=== PATIENT | male | born 1980 | race Two or more races ===

== ENCOUNTER 2017-06-21 13:29 | Inpatient (IN) | payer MEDICAID ==
[~2017-06-21] VITALS: Ht 154.9 cm; Wt 65.8 kg
--- NOTE | 2017-06-21 13:45 | Emergency Room Report ---
History of Present Illness General Chief Complaint: Dizziness Source: Patient (Joseph Corley M.D.) Present Illness HPI 36-year-old male, history of diabetes, presenting with dizziness upon standing. Patient states that she checked her sugar this morning it was over 300, got up and felt very lightheaded, did not hit the floor. Patient states that he has had intermittent lightheadedness all day. Admits to drinking alcohol however last drink was yesterday afternoon. Patient states that he takes his metformin as directed, as well as insulin at night time last dose was last night. Patient denies any headache, blurry vision, neck pain, nausea vomiting diarrhea, dysuria, motor or sensory weakness (Joseph Corley M.D.) Allergies: Coded Allergies: No Known Allergies (Unverified , 04/16/13) Patient History Past Medical History: see triage record Past Surgical History: none Pertinent Family History: none Reviewed Nursing Documentation: PMH: Agreed, PSxH: Agreed (Joseph Corley M.D. ) Nursing Documentation-PMH Past Medical History: No History, Except For Hx Diabetes: Yes (Joseph Corley M.D.) Review of Systems All Other Systems: negative except mentioned in HPI (Joseph Corley M.D.) Physical Exam Vital Signs Date Time Temp Pulse Resp B/P (MAP) Pulse Ox O2 Delivery O2 Flow Rate FiO2 06/21/17 13:22 98.1 98 20 129/62 99 Room Air Sp02 EP Interpretation: reviewed, normal General Appearance: alert, GCS 15, non-toxic, other - Anxious appearing young male, conversing appropriately at bedside, not in acute respiratory distress Head: normocephalic, atraumatic Eyes: bilateral eye normal inspection, bilateral eye PERRL, bilateral eye EOMI ENT: normal ENT inspection, normal pharynx, normal voice, moist mucus membranes Neck: normal inspection, full range of motion, supple, no meningismus Respiratory: normal inspection, lungs clear, normal breath sounds, no respiratory distress, no retraction, no wheezing, speaking full sentences, chest symmetrical Cardiovascular #1: normal inspection, no edema, normal capillary refill, tachycardia Cardiovascular #2: 2+ radial (R), 2+ radial (L) Gastrointestinal: normal inspection, non tender, soft, non-distended, no guarding Genitourinary: no CVA tenderness Musculoskeletal: normal inspection, back normal, normal range of motion, non- tender Neurologic: normal inspection, alert, oriented x3, responsive, manager er III-XII nml as tested, motor strength/tone normal, sensory intact, normal gait, speech normal Psychiatric: normal inspection, judgement/insight normal, memory normal Skin: normal inspection, normal color, no rash, warm/dry, well hydrated, normal turgor (Joseph Corley M.D.) Medical Decision Making Diagnostic Impression: Primary Impression: Dizziness Additional Impressions: Dehydration Hyponatremia Hypokalemia Hypochloremia ER Course 36-year-old male with diabetes presenting with one day of lightheadedness DDX: Electrolyte disturbance, hypoglycemia, dehydration, UTI, alcohol intox Patient not exhibiting any neurological deficits and not having any neurological symptoms to think intracranial pathology at this time Plan: Obtain labs, ua, ucx, ucg, CXR, EKG ER course: Patient has remained stable during ED stay. Denies pain Given IVF as EMS states BP was low, BP has been normal in ED Please note that this Emergency Department Report was dictated using [employer] expeditor technology software, occasionally this can lead to erroneous entry secondary to interpretation by the dictation equipment Signed out to 36-year-old male admits to drinking yesterday diabetic presenting with one day of lightheadedness -Pending labs -At this time pt appears stable, will anticipate discharge after IVF however correlate with labs (Joseph Corley M.D.) ER Course Hospital Course 36-year-old male presents to ED complaining of dizziness, orthostatic vitals as per EMS Clinical course Patient initially seen and evaluated by Dr. Corley. Please see her note for full history and physical Patient started on IV fluids, EKG chest x-ray labs reviewed- noted leukocytosis, hb/hct stable, Na 124, K 1.9, Cl 70. glucose in the 200s. AG normal. lactate ok. Magnesium ok EKG - NSR, prolonged QT, no ischemic changes intperreted by me Chest x-ray- no acute process Given fluids, given potassium IV and by mouth. Given antibiotics. Case discussed with Dr. Harris and he agreed to accept the patient to his service for further care and support I. I feel this is a highly complex case requiring extensive working including EKG/Rhythm strip, Xray/CT/US, Blood/urine lab work, repeat exams while in ED, and administration of strong opiates/narcotics for pain control, admission to hospital or close patient follow up. Diagnosis - dizziness, dehydration, hyponatremia, hypokalemia, hypochloremia admitted to telemetry in serious condition Labs Test 06/21/17 14:00 06/21/17 14:30 06/21/17 14:56 06/21/17 16:40 White Blood Count 12.8 K/UL (4.8-10.8) Red Blood Count 4.07 M/UL (4.70-6.10) Hemoglobin 13.5 G/DL (14.2-18.0) Hematocrit 35.6 % (42.0-52.0) Mean Corpuscular Volume 88 FL (80-99) Mean Corpuscular Hemoglobin 33.2 PG (27.0-31.0) Mean Corpuscular Hemoglobin Concent 37.9 G/DL (32.0-36.0) Red Cell Distribution Width 9.5 % (11.6-14.8) Platelet Count 168 K/UL (150-450) Mean Platelet Volume 9.4 FL (6.5-10.1) Neutrophils (%) (Auto) 83.0 % (45.0-75.0) Lymphocytes (%) (Auto) 8.3 % (20.0-45.0) Monocytes (%) (Auto) 8.3 % (1.0-10.0) Eosinophils (%) (Auto) 0.0 % (0.0-3.0) Basophils (%) (Auto) 0.4 % (0.0-2.0) Sodium Level 121 mEQ/L (135-145) 124 mEQ/L (135-145) Potassium Level 2.1 mEQ/L (3.4-4.9) 1.9 mEQ/L (3.4-4.9) Chloride Level 63 mEQ/L (98-107) 70 mEQ/L (98-107) Carbon Dioxide Level 47 mEQ/L (20-30) 45 mEQ/L (20-30) Anion Gap 11 (5-15) 9 (5-15) Blood Urea Nitrogen 49 mg/dL (7-23) 46 mg/dL (7-23) Creatinine 1.1 mg/dL (0.7-1.2) 1.0 mg/dL (0.7-1.2) Estimat Glomerular Filtration Rate > 60 mL/min (>60) > 60 mL/min (>60) Glucose Level 290 mg/dL (74-106) 235 mg/dL (74-106) Calcium Level 9.0 mg/dL (8.6-10.2) 8.3 mg/dL (8.6-10.2) Total Bilirubin 1.0 mg/dL (0.0-1.2) 0.9 mg/dL (0.0-1.2) Aspartate Amino Transf (AST/SGOT) 110 U/L (5-40) 95 U/L (5-40) Alanine Aminotransferase (ALT/SGPT) 72 U/L (3-41) 64 U/L (3-41) Alkaline Phosphatase 101 U/L (40-129) 87 U/L (40-129) Troponin I < 0.30 ng/mL (<=0.30) Total Protein 6.6 g/dL (6.6-8.7) 5.8 g/dL (6.6-8.7) Albumin 4.1 g/dL (3.5-5.2) 3.6 g/dL (3.5-5.2) Globulin 2.5 g/dL 2.2 g/dL Albumin/Globulin Ratio 1.6 (1.0-2.7) 1.6 (1.0-2.7) Serum Alcohol < 10 mg/dL Urine Color Mary Urine Appearance Slightly cloudy Urine pH 6 (4.5-8.0) Urine Specific [place] 1.015 (1.005-1.035) Urine Protein 2+ (NEGATIVE) Urine Glucose (UA) 2+ (NEGATIVE) Urine Ketones 1+ (NEGATIVE) Urine Occult Blood 2+ (NEGATIVE) Urine Nitrite Negative (NEGATIVE) Urine Bilirubin Negative (NEGATIVE) Urine Ictotest Negative Urine Urobilinogen 1 MG/DL (0.0-1.0) Urine Leukocyte Esterase 1+ (NEGATIVE) Urine RBC 0-2 /HPF (0 - 0) Urine WBC 0-2 /HPF (0 - 0) Urine Squamous Epithelial Cells Occasional /LPF Urine Amorphous Sediment Few /LPF (NONE) Urine Bacteria Few /HPF (NONE) Urine Hyaline Casts 10-15 /LPF (NONE) Urine Mucus Moderate /LPF (NONE/OCC) Urine Opiates Screen Negative (NEGATIVE) Urine Barbiturates Screen Negative (NEGATIVE) Phencyclidine (PCP) Screen Negative (NEGATIVE) Urine Amphetamines Screen Negative (NEGATIVE) Urine Benzodiazepines Screen Negative (NEGATIVE) Urine Cocaine Screen Negative (NEGATIVE) Urine Marijuana (THC) Screen Negative (NEGATIVE) Lactic Acid Level 1.60 mmol/L (0.66-2.22) (CAR [place]GAS M.D.) EKG Diagnostic Results Rate: tachycardiac Rhythm: NSR ST Segments: no acute changes Other Impression prolonged QT (Joseph Corley M.D.) Rate: normal Rhythm: NSR ST Segments: other - QR prolongation ASA given to the pt in ED: No (CAR [place]GAS M.D.) Rhythm Strip Diag. Results Rate: 100 Rhythm: NSR, no PVC's, no ectopy (Joseph Corley M.D.) EP Interpretation: yes Rhythm: NSR, no PVC's, no ectopy (CAR [place]GAS M.D.) Chest X-Ray Diagnostic Results Chest X-Ray Diagnostic Results : Chest X-Ray Ordered: Yes # of Views/Limited/Complete: 1 View Indication: Other - dizziness EP Interpretation: Yes Interpretation: no consolidation, no effusion, no pneumothorax, no acute cardiopulmonary disease Impression: No acute disease Electronically Signed by: Electronically signed by Car [place] MD (CAR [place]GAS M.D.) Last Vital Signs Date Time Temp Pulse Resp B/P (MAP) Pulse Ox O2 Delivery O2 Flow Rate FiO2 06/21/17 13:22 98.1 98 20 129/62 99 Room Air (Joseph Corley M.D.) Status: improved (CAR [place]GAS M.D.) Disposition: ADMITTED INPATIENT Condition: Serious Joseph Corley M.D. Jun 21, 2017 13:45 CAR [place]GAS M.D. Jun 21, 2017 18:09
[2017-06-21 14:19] LABS: BASOPHILS % (AUTO) 0.4 % (0.0-2.0); LYMPHOCYTES % (AUTO) 8.3 % (20.0-45.0); MEAN CORPUSCULAR HEMOGLOBIN 33.2 PG (27.0-31.0); MEAN CORPUSCULAR HGB CONC 37.9 G/DL (32.0-36.0); MEAN CORPUSCULAR VOLUME 88 FL (80-99); MEAN PLATELET VOLUME 9.4 FL (6.5-10.1); MONOCYTES % (AUTO) 8.3 % (1.0-10.0); PLATELET COUNT 168 K/UL (150-450); RED BLOOD COUNT 4.07 M/UL (4.70-6.10); RED CELL DISTRIBUTION WIDTH 9.5 % (11.6-14.8); WHITE BLOOD COUNT 12.8 K/UL (4.8-10.8)
[2017-06-21 14:32] VITALS: BP 120/75
[2017-06-21 14:38] LABS: ALANINE AMINOTRANSFERASE 72 U/L (3-41); ALBUMIN/GLOBULIN RATIO 1.6 (1.0-2.7); ALCOHOL < 10 mg/dL; ASPARTATE AMINO TRANSFERASE 110 U/L (5-40); CHLORIDE 63 mEQ/L (98-107); CREATININE 1.1 mg/dL (0.7-1.2); GLOMERULAR FILTRATION RATE > 60 mL/min (>60); HEMOLYSIS 20; TOTAL PROTEIN 6.6 g/dL (6.6-8.7)
[2017-06-21 14:39] LABS: APPEARANCE,URINE SLIGHTLY CLOUDY; KETONES,URINE 1+ (NEGATIVE); LEUKOCYTE ESTERASE ,URINE 1+ (NEGATIVE); NITRITE,URINE NEGATIVE (NEGATIVE); PH,URINE 6 (4.5-8.0); PROTEIN,URINE 2+ (NEGATIVE); UROBILINOGEN,URINE 1 MG/DL (0.0-1.0)
[2017-06-21 14:44] LABS: ANION GAP 11 (5-15); SODIUM 121 mEQ/L (135-145)
[2017-06-21 14:48] LABS: AMORPHOUS SEDIMENT,UR FEW /LPF; BACTERIA,URINE FEW /HPF; RBC,URINE 0-2 /HPF (0 - 0); SQUAMOUS EPITHELIAL CELL,UR OCCASIONAL /LPF (NONE/OCC); WBC,URINE 0-2 /HPF (0 - 0)
[2017-06-21 14:49] LABS: ICTOTEST NEGATIVE; MUCUS,URINE MODERATE /LPF (NONE/OCC)
[2017-06-21 14:50] LABS: CARBON DIOXIDE 47 mEQ/L (20-30); POTASSIUM 2.1 mEQ/L (3.4-4.9)
[2017-06-21 15:00] LABS: TROPONIN I < 0.30 ng/mL (<=0.30)
[2017-06-21 15:55] LABS: ALANINE AMINOTRANSFERASE 64 U/L (3-41); ALBUMIN/GLOBULIN RATIO 1.6 (1.0-2.7); ANION GAP 9 (5-15); ASPARTATE AMINO TRANSFERASE 95 U/L (5-40); CALCIUM 8.3 mg/dL (8.6-10.2); CHLORIDE 70 mEQ/L (98-107); GLOMERULAR FILTRATION RATE > 60 mL/min (>60); HEMOLYSIS 2; SODIUM 124 mEQ/L (135-145); TOTAL PROTEIN 5.8 g/dL (6.6-8.7)
[2017-06-21 16:11] LABS: POTASSIUM 1.9 mEQ/L (3.4-4.9)
[2017-06-21 16:12] LABS: CARBON DIOXIDE 45 mEQ/L (20-30)
[2017-06-21 16:44] VITALS: BP 114/67
[2017-06-21] MEDS ORDERED: METFORMIN HCL500 M5 PO (17:26)
[2017-06-21] MEDS ORDERED: LANTUS SOL100 UNIT/1 SUBQ (17:26)
[2017-06-21 18:21] VITALS: BP 102/69
[2017-06-21] MEDS ORDERED: Vancomycin 1gm inj IVPB ONE ×2 (18:28→18:35)
[2017-06-21] MEDS ORDERED: Vancomycin 1 GM in D5W 275 ML IVPB ONE (18:30)
[2017-06-21 20:00] VITALS: BP 138/76
[2017-06-21] MEDS ORDERED: Milk of Magnesia 30ml Ud ORAL PRN (20:30)
[2017-06-21] MEDS ORDERED: Zolpidem 5mg tab ORAL PRN (21:00)
[2017-06-21] MEDS: NovoLOG Insulin Flexpen SUBQ SCH (22:00)
[2017-06-22] VITALS: BP 127/78
[2017-06-22 04:00] VITALS: BP 120/46
[2017-06-22] MEDS: NovoLOG Insulin Flexpen SUBQ SCH ×4 (06:30→20:51)
[2017-06-22 08:40] VITALS: BP 136/73
[2017-06-22 08:47] LABS: EOSINOPHILS % (AUTO) 0.3 % (0.0-3.0); LYMPHOCYTES % (AUTO) 16.7 % (20.0-45.0); MEAN CORPUSCULAR HEMOGLOBIN 33.9 PG (27.0-31.0); MEAN CORPUSCULAR HGB CONC 36.9 G/DL (32.0-36.0); MEAN CORPUSCULAR VOLUME 92 FL (80-99); MONOCYTES % (AUTO) 12.1 % (1.0-10.0); PLATELET COUNT 142 K/UL (150-450); RED BLOOD COUNT 3.37 M/UL (4.70-6.10); RED CELL DISTRIBUTION WIDTH 10.5 % (11.6-14.8); WHITE BLOOD COUNT 9.2 K/UL (4.8-10.8)
[2017-06-22 09:05] LABS: CALCIUM 8.9 mg/dL (8.6-10.2); CARBON DIOXIDE 38 mEQ/L (20-30); CHLORIDE 84 mEQ/L (98-107); CHOLESTEROL 161 mg/dL (< 200); CHOLESTEROL/HDL RATIO 2.7 (3.3-4.4); CREATININE 0.7 mg/dL (0.7-1.2); GLOMERULAR FILTRATION RATE > 60 mL/min (>60); HEMOLYSIS 5; LDL CHOLESTEROL (CALC.) 77 mg/dL (60-99); MAGNESIUM 2.3 mg/dL (1.7-2.5); SODIUM 131 mEQ/L (135-145)
[2017-06-22 09:11] LABS: HEMOGLOBIN A1C 6.3 % (< 6.0)
[2017-06-22 09:24] LABS: ANION GAP 9 (5-15)
[2017-06-22 09:25] LABS: POTASSIUM 2.7 mEQ/L (3.4-4.9)
[2017-06-22] MEDS ORDERED: NS 275ml ONE (09:50)
[2017-06-22] MEDS ORDERED: Tubing IV Secondary IV ONE (09:50)
--- NOTE | 2017-06-22 10:54 | History & Physical ---
History and Physical History & Physicial HP dictated # [id number] BRIAN GREEN Jun 22, 2017 10:53
--- NOTE | 2017-06-22 11:05 | Diagnostic Imaging Report ---
Indication: Dyspnea Comparison: None A single view chest radiograph was obtained. Findings: Cardiomediastinal appearance is within normal limits for age. Pulmonary vascularity is appropriate. The diaphragmatic contour is smooth and costophrenic angles are sharp. No pleural effusions are identified. The bones are unremarkable. Impression: No acute findings
[2017-06-22] MEDS ORDERED: LORazepam 1mg tab ORAL PRN (11:15)
[2017-06-22 12:00] VITALS: BP 146/73
[2017-06-22] MEDS ORDERED: LORazepam Inj 2mg/ml 1ml IV PRN ×2 (17:15→19:30)
[2017-06-22] MEDS ORDERED: LORazepam Inj 2mg/ml 1ml IM PRN ×2 (18:30→19:00)
[2017-06-22] MEDS ORDERED: LORazepam Inj 2mg/ml 1ml IM ONE (18:45)
--- NOTE | 2017-06-22 19:00 | History and Physical Report ---
DATE OF ADMISSION: 06/21/2017 CHIEF COMPLAINT: Dizziness. History Of Present Illness: This is a 36-year-old male with history of diabetes mellitus. He started getting dizzy upon standing yesterday. His blood sugar was over 300. He said that he forgot to take his diabetes medications. The patient has a history of alcohol abuse and he said he is trying to cut back, but he still drinks four shots of khushbu a day. The patient was seen in the emergency room and was found to have severe hyponatremia with serum sodium 124, also potassium was low at 1.9. The patient was admitted for further care. PAST MEDICAL HISTORY: History of diabetes, otherwise unremarkable. MEDICATIONS: Reviewed in EMR. Social History: The patient lives at home with and with two children, who works in the restaurant business. ALLERGIES: No known drug allergies. REVIEW OF SYSTEMS: As above. PHYSICAL EXAMINATION: General: The patient is a 36-year-old male, in no acute distress. He feels better now. Vital Signs: Blood pressure 136/73, pulse 115, temperature 98.7 degrees, and respiratory rate is 20. HEENT: Pale conjunctivae. Anicteric sclerae. NECK: Supple. LUNGS: Clear to auscultation. HEART: S1 and S2 without murmurs or rubs. ABDOMEN: Soft and nontender. EXTREMITIES: No cyanosis or edema. Laboratory And Diagnostic Data: Laboratory finding, the chemistry panel shows serum sodium 131, potassium 2.7, chloride 84, CO2 28, BUN 20, creatinine 0.7, and blood sugar 112. CBC shows a WBC of 9.2, hematocrit 31, hemoglobin 11.4, and platelets 132,000. Hemoglobin A1c is 6.3. LDL 77, HDL 60, and triglycerides 118. Urine studies were done. Urine sodium less than 10. Urine osmolality 676. Assessment: This is a 36-year-old male, who was admitted with dizziness and uncontrolled diabetes. He had hyponatremia. His urine studies consistent with volume depletion. He has also hypokalemia, likely due to his alcohol abuse and contraction alkalosis. Interestingly his magnesium level was not low. Plan: The patient will be hydrated with intravenous normal saline. Potassium will be repleted. The patient is on diabetic diet. He has tolerated it well. An echocardiogram will be obtained to make sure the patient does not have any alcoholic cardiomyopathy. If stable, he will be discharged home. He is currently on sliding scale insulin. Leonel Harris M.D. DR: ISAIAH JOB#: [id number] CC:
[2017-06-22 23:43] VITALS: BP 97/52
[2017-06-23] VITALS (7 sets, daily range): BP systolic 120–140; BP diastolic 67–84
[2017-06-23] MEDS: NovoLOG Insulin Flexpen SUBQ SCH ×4 (05:17→22:00)
[2017-06-23 09:22] LABS: ANION GAP 9 (5-15); CALCIUM 8.1 mg/dL (8.6-10.2); CARBON DIOXIDE 29 mEQ/L (20-30); CHLORIDE 93 mEQ/L (98-107); CREATININE 0.6 mg/dL (0.7-1.2); GLOMERULAR FILTRATION RATE > 60 mL/min (>60); HEMOLYSIS 3; POTASSIUM 3.1 mEQ/L (3.4-4.9); SODIUM 131 mEQ/L (135-145)
--- NOTE | 2017-06-23 12:36 | General Progress Note ---
Assessment/Plan Problem List: (1) Alcohol withdrawal delirium ICD Codes: F10.231 - Alcohol dependence with withdrawal delirium SNOMED: 8395288 (2) Hypokalemia ICD Codes: E87.6 - Hypokalemia SNOMED: 63053291 (3) Hyponatremia ICD Codes: E87.1 - Hypo-osmolality and hyponatremia SNOMED: 86059993 (4) Dehydration ICD Codes: E86.0 - Dehydration SNOMED: 13527813 Assessment/Plan PRN Ativan Replete K Discussed with RN follow labs Subjective Allergies: Coded Allergies: No Known Allergies (Unverified , 04/16/13) Subjective less confused Objective Last 24 Hour Vital Signs Date Time Temp Pulse Resp B/P (MAP) Pulse Ox O2 Delivery O2 Flow Rate FiO2 06/23/17 12:00 99.0 105 20 128/77 98 Room Air 06/23/17 08:00 99.1 110 20 140/82 97 Room Air 06/23/17 08:00 111 06/23/17 04:00 112 06/23/17 04:00 100.0 104 19 120/79 98 Room Air 06/23/17 00:00 120 06/22/17 23:43 97.9 119 22 97/52 90 Room Air Laboratory Tests 06/23/17 08:30: Sodium Level 131L, Potassium Level 3.1L, Chloride Level 93L, Carbon Dioxide Level 29, Anion Gap 9, Blood Urea Nitrogen 13, Creatinine 0.6L, Estimat Glomerular Filtration Rate > 60, Glucose Level 289#H, Calcium Level 8.1L Height (Feet): 5 Height (Inches): 1.00 Weight (Pounds): 145 Cardiovascular: normal rate Respiratory/Chest: lungs clear BRIAN GREEN Jun 23, 2017 12:36
--- NOTE | 2017-06-23 18:30 | Cardiology Report ---
APPROVED REPORT EXAM: Two-dimensional and M-mode echocardiogram with Doppler and color Doppler. INDICATION Dizziness M-Mode DIMENSIONS IVSd1.5 (0.7-1.1cm)Left Atrium (MM)3.4 (1.6-4.0cm) LVDd4.0 (3.5-5.6cm)Aortic Root3.0 (2.0-3.7cm) PWd1.1 (0.7-1.1cm)Aortic Cusp Exc.2.0 (1.5-2.0cm) LVDs2.1 (2.5-4.0cm) PWs2.1 cm Normal left ventricular chamber size, systolic function and wall motion. Left ventricular ejection fraction estimated to be 60 %. Mild left ventricular hypertrophy. Anterior Echo-free space, may be due to pericardial fat or effusion. All other cardiac chamber sizes are within normal limits. Mild focal aortic valve sclerosis with adequate cusp excursion. Mildly thickened mitral valve leaflets with normal excursion. Mild mitral annulus and aortic root calcification. Pulmonic valve not well visualized. Normal tricuspid valve structure. IVC at normal size with physiologic collapse. A color flow and spectral Doppler study was performed and revealed: Trace aortic regurgitation. Trace mitral regurgitation. Mitral inflow indicates normal left ventricular diastolic function. Trace tricuspid regurgitation. Tricuspid systolic velocities suggests peak right ventricular systolic pressure of 16 mmHg. Pulmonic regurgitation present.
--- NOTE | 2017-06-23 19:10 | Cardiology Report ---
APPROVED REPORT EKG Measurement Heart [id number] Sinus tachycardia Rightward axis Prolonged QT Abnormal ECG
--- NOTE | 2017-06-23 23:46 | Consultation ---
History of Present Illness General Chief Complaint: Dizziness Present Illness HPI 36-year-old male with history of alcohol dependence , mdd, diabetes mellitus. He started getting dizzy, during the eval the pt was agitated and confused the pt drinks every day. has waxing adn waning of consciousness. the pt has cognitive impairment. Allergies: Coded Allergies: No Known Allergies (Unverified , 04/16/13) Medication History Scheduled Insulin Glargine (Lantus), 0 SUBQ BEDTIME, (Reported) Miscellaneous Medications Metformin HCl (Metformin HCl ER), 500 MG PO, (Reported) Patient History Limited by: medical condition History Provided By: Patient, Medical Record, PMD Healthcare decision maker Resuscitation status Full Code Advanced Directive on File Past Medical/Surgical History Past Medical/Surgical History: (1) Dehydration (2) Hypokalemia (3) Hypochloremia (4) Dizziness (5) Alcohol withdrawal delirium (6) Hyponatremia Review of Systems Constitutional: Reports: malaise, weakness Psychiatric: Reports: prior hx, anxiety, depressed feelings, emotional problems , hallucinations Physical Exam General Appearance: alert, confused, moderate distress, agitated, thin Neurologic: alert, responsive, disoriented Last 24 Hour Vital Signs Date Time Temp Pulse Resp B/P (MAP) Pulse Ox O2 Delivery O2 Flow Rate FiO2 06/23/17 20:20 98.2 06/23/17 20:00 100.2 97 18 136/84 98 Room Air 06/23/17 16:18 99.3 96 20 125/67 98 Room Air 06/23/17 16:00 98.9 96 20 125/67 98 Room Air 06/23/17 16:00 95 06/23/17 12:00 99.0 105 20 128/77 98 Room Air 06/23/17 12:00 99 06/23/17 08:00 99.1 110 20 140/82 97 Room Air 06/23/17 08:00 111 06/23/17 04:00 112 06/23/17 04:00 100.0 104 19 120/79 98 Room Air 06/23/17 00:00 120 06/22/17 23:43 97.9 119 22 97/52 90 Room Air Intake and Output 06/23/17 06/24/17 19:00 07:00 Intake Total 580 ml 300 ml Output Total 1150 ml Balance -570 ml 300 ml Intake Oral 480 ml IV Total 100 ml 300 ml Output Urine Total 1150 ml # Bowel Movements 2 Laboratory Tests Test 06/23/17 08:30 Sodium Level 131 mEQ/L (135-145) L Potassium Level 3.1 mEQ/L (3.4-4.9) L Chloride Level 93 mEQ/L (98-107) L Carbon Dioxide Level 29 mEQ/L (20-30) Anion Gap 9 (5-15) Blood Urea Nitrogen 13 mg/dL (7-23) Creatinine 0.6 mg/dL (0.7-1.2) L Estimat Glomerular Filtration Rate > 60 mL/min (>60) Glucose Level 289 mg/dL (74-106) #H Calcium Level 8.1 mg/dL (8.6-10.2) L Height (Feet): 5 Height (Inches): 1.00 Weight (Pounds): 145 Medications Current Medications Medications (Trade) Dose Ordered Sig/Nydia Route PRN Reason Start Time Stop Time Status Last Admin Dose Admin Acetaminophen (Tylenol) 650 mg Q4H PRN ORAL Mild Pain (Pain Scale 1-3) 06/21/17 20:30 07/21/17 20:29 Dextrose (Dextrose 50%) STAT PRN IV Hypoglycemia 06/21/17 20:30 07/21/17 20:29 Insulin Aspart (NovoLOG) BEFORE MEALS AND HS SUBQ 06/21/17 22:00 07/21/17 21:59 06/23/17 22:00 Lorazepam (Ativan 2mg/ml 1ml) 2 mg Q1H PRN IM Agitation 06/22/17 19:00 06/29/17 18:29 06/22/17 20:39 Lorazepam (Ativan 2mg/ml 1ml) 2 mg Q1HR PRN IV For Anxiety 06/22/17 19:30 06/29/17 19:29 Magnesium Hydroxide (Mom) 30 ml HSPRN PRN ORAL Constipation 06/21/17 20:30 07/21/17 20:29 Multivitamins (Multivitamins) 1 tab DAILY ORAL 06/22/17 11:00 07/22/17 10:59 06/23/17 08:12 Ondansetron HCl (Zofran) 4 mg Q6H PRN IVP Nausea & Vomiting 06/21/17 20:30 07/21/17 20:29 Ranitidine HCl (Zantac) 150 mg TWICE A DAY ORAL 06/21/17 21:00 07/21/17 20:59 06/23/17 17:09 Sodium Chloride 1,000 ml @ 100 mls/hr Q10H IVLG 06/21/17 21:00 07/21/17 20:59 06/23/17 22:00 Zolpidem Tartrate (Ambien) 5 mg HSPRN PRN ORAL Insomnia 06/21/17 21:00 06/28/17 20:59 Assessment/Plan Status: not improved, unchanged Assessment/Plan alcohol dependence encephalopathy mdd start on valium po for alcohol withdrawal fluoxetine 20mg Sonny Belle M.D. Jun 23, 2017 23:46
[2017-06-24 04:00] VITALS: BP 129/82
[2017-06-24] MEDS: NovoLOG Insulin Flexpen SUBQ SCH ×3 (06:25→17:36)
[2017-06-24 07:28] LABS: ANION GAP 14 (5-15); CALCIUM 8.2 mg/dL (8.6-10.2); CARBON DIOXIDE 23 mEQ/L (20-30); CHLORIDE 100 mEQ/L (98-107); CREATININE 0.5 mg/dL (0.7-1.2); GLOMERULAR FILTRATION RATE > 60 mL/min (>60); HEMOLYSIS 7; POTASSIUM 3.7 mEQ/L (3.4-4.9); SODIUM 137 mEQ/L (135-145)
[2017-06-24 08:00] VITALS: BP 126/82
[2017-06-24 12:00] VITALS: BP 128/84
[2017-06-24] MEDS ORDERED: FLUOXETINE HCL20 MG ORAL (14:21)
--- NOTE | 2017-06-24 14:26 | Consultation ---
Consult Note Assessment/Plan Dc dictated # [id number] BRIAN GREEN Jun 24, 2017 14:26
[2017-06-24] MEDS ORDERED: Tubing IV Secondary IV ONE (15:10)
[2017-06-24 16:00] VITALS: BP 126/79
--- NOTE | 2017-06-25 05:00 | Progress Note ---
DATE: 06/24/2017 Subjective: The patient is more alert, calmer, still has anxiety, and withdrawing from the alcohol. He is more cooperative and less agitated. Mental Status Examination: The patient is alert and oriented to time and self. Mood is neutral. Affect is flat. Congruent with mood. Thought process, concrete. Thought content, there is no suicidal or homicidal ideation. ASSESSMENT: 1. Depression. 2. Alcohol dependence. Plan: We will continue to follow. Provide the patient with supportive therapy and reality orientation. Sonny Belle M.D. DR: ANAM JOB#: [id number] CC:
--- NOTE | 2017-06-25 18:02 | Discharge Summary ---
DATE OF ADMISSION: 06/21/2017 DATE OF DISCHARGE: 06/24/2017 CHIEF COMPLAINT: Dizziness. History Of Present Illness: This is a 36-year-old male with history of diabetes and alcohol abuse. He was admitted for dizziness and he was found to have significant hyponatremia and also hypokalemia with potassium 1.9. Hospital Course: The patient was given IV normal saline. His urine studies were consistent with volume depletion. His potassium was repleted. The latest laboratories showed a serum sodium of 137 and potassium of 3.7, both within normal limits on 06/24/2017. Also, he developed alcohol withdrawal syndrome with delirium and he had to be restrained and also sedated with benzodiazepines. Finally, his mind cleared and he was coherent and he was sent home in stable condition. DISCHARGE DIAGNOSES: 1. Severe hyponatremia and hypokalemia. 2. Alcohol withdrawal delirium. 3. History of diabetes mellitus, uncontrolled. DISCHARGE MEDICATIONS: Please refer to discharge medication list. DIET: Diabetic diet. Leonel Harris M.D. DR: ANDREA JOB#: [id number] CC:
== END 2017-06-24 18:39 | disposition home or self-care (01) | DRG 775 ==
LOC: EMR 16:30 → 2E 16:31 → EDBEDREQ 17:52
DX: F10.231 Alcohol dependence with withdrawal delirium (principal); G31.2 Degeneration of nervous system due to alcohol; E11.65 Type 2 diabetes mellitus with hyperglycemia; E87.1 Hypo-osmolality and hyponatremia; E87.6 Hypokalemia; E86.0 Dehydration; Z79.4 Long term (current) use of insulin; Z79.84 Long term (current) use of oral hypoglycemic drugs; R42 Dizziness and giddiness; F32.9 Major depressive disorder, single episode, unspecified
CPT/HCPCS: 36415; 71010; 80048; 80053; 80061; 80300; 80329; 81001; 82962; 83036; 83605; 83735; 83935; 84300; 84443; 84484; 85025; 87040; 93005; 93306; 99285; J1815; J8499